=== PATIENT | female | born 1995 | race Two or more races ===

== ENCOUNTER 2018-10-20 14:36 | Emergency (ER) | payer OTHER ==
[~2018-10-20] VITALS: Ht 162.6 cm; Wt 79.4 kg
[2018-10-20 14:51] VITALS: BP 119/76
== END 2018-10-20 16:09 | disposition left against medical advice (07) ==
LOC: ER 14:39
DX: R10.13 Epigastric pain (principal); Z88.6 Allergy status to analgesic agent; Z53.29 Procedure and treatment not carried out because of patient's decision for other reasons